=== PATIENT | female | born 1945 | race African-American/Black ===

== ENCOUNTER 2016-10-30 10:10 | Inpatient (IN) | payer OTHER ==
[2016-10-28 11:08] LABS: ADD UMIC YES; URINE BILIRUBIN (Dip) NEGATIVE (NEGATIVE); URINE BLOOD (Dip) 3+ (NEGATIVE); URINE COLOR LT. YELLOW (YELLOW); URINE GLUCOSE (Dip) NEGATIVE (NEGATIVE); URINE KETONES (Dip) NEGATIVE (NEGATIVE); URINE LEUKOCYTE ESTERASE (Dip) 2+ (NEGATIVE); URINE NITRITE (Dip) NEGATIVE (NEGATIVE); URINE TOTAL PROTEIN (Dip) TRACE (NEGATIVE); URINE UROBILINOGEN (Dip) 1.0 E.U./dL (0.1-1.0)
[2016-10-28 11:12] LABS: BASOPHILS % 0.5 % (0.0-2.0); EOSINOPHILS # 0.1 10^3/ul (0.0-0.5); EOSINOPHILS % 1.9 % (0.0-7.0); HEMATOCRIT 40.8 % (37.0-47.0); HEMOGLOBIN 13.7 g/dl (12.0-16.0); LYMPHOCYTES # 2.6 10^3/ul (0.8-2.9); LYMPHOCYTES % 34.5 % (15.0-51.0); MEAN CORPUSCULAR HGB CONC 33.6 g/dl (32.0-37.0); MEAN CORPUSCULAR VOLUME 83.4 fl (82.0-101.0); MEAN PLATELET VOLUME 8.8 fl (7.4-10.4); MONOCYTE # 0.5 10^3/ul (0.3-0.9); NEUTROPHIL # 4.3 10^3/ul (1.6-7.5); NEUTROPHILS % 56.1 % (39.0-77.0); PLATELET COUNT 272 10^3/UL (140-440); RED BLOOD COUNT 4.89 10^6/ul (4.20-5.40); RED CELL DISTRIBUTION WIDTH 13.4 % (11.5-14.5); UNCORRECTED WBC 7.6 10^3/ul (4.8-10.8); WHITE BLOOD COUNT 7.6 10^3/ul (4.8-10.8)
[2016-10-28 11:14] LABS: CONDITION 1
[2016-10-28 11:20] LABS: ALBUMIN 4.2 g/dl (3.3-4.9)
[2016-10-28 11:21] LABS: POTASSIUM 3.6 mmol/L (3.5-5.1)
[2016-10-28 11:23] LABS: BILIRUBIN,INDIRECT 0.5 mg/dl (0-1.1); BILIRUBIN,TOTAL 0.5 mg/dl (0.2-1.3); CREATININE 0.95 mg/dl (0.44-1.00)
[2016-10-28 11:24] LABS: ALBUMIN/GLOBULIN RATIO 1.1; CALCIUM 9.4 mg/dl (8.4-10.2)
[2016-10-28 11:26] LABS: INR 1.03; PROTIME 13.5 Sec (12.2-14.2); PT RATIO 1.1
[2016-10-28 11:49] LABS: BACTERIA,URINE FEW
[2016-10-28 13:08] LABS: CANCER ANTIGEN 125 36.2 U/ml (0.0-35.0)
[~2016-10-30] VITALS: Ht 160 cm; Wt 100.9 kg
[2016-10-30] VITALS (26 sets, daily range): BP systolic 130–195; BP diastolic 70–104; PULSE 69–95; RESP 10–23; Ht 160 cm; Wt 100.9 kg
[~2016-10-30 10:10] MED LIST: ROCURONIUM 50 MG INJ ONE
[2016-10-30] MEDS ORDERED: VALS1TAB76 PO (11:43)
[2016-10-30] MEDS ORDERED: SMV40T PO (11:43)
[2016-10-30] MEDS ORDERED: THROMBIN 5000 UNIT VIAL ONE (12:04)
[2016-10-30] MEDS ORDERED: METHYLENE BLUE 10 MG/ML VIAL ONE (12:04)
[2016-10-30] MEDS: Metronidazole 500 MG in NS 100 ML IVPB SCH ×2 (12:15→14:45)
[2016-10-30] MEDS: CEFAZOLIN 2 GM/50 ML (PMX) 50 ML IVPB SCH ×2 (12:16→14:30)
[2016-10-30] MEDS ORDERED: D5-NS + KCL 20 MEQ 1,000 ML IV SCH (12:30)
--- NOTE | 2016-10-30 13:16 | HPN ---
Date/Time of Note Date/Time of Note DATE: 10/30/16 TIME: 13:15 Interval H&P Admission Note Pt. seen H&P reviewed: No system changes ZOË VENEGAS MD Oct 30, 2016 13:16
[2016-10-30] MEDS ORDERED: PROPOFOL 20 ML ONE (13:22)
[2016-10-30] MEDS ORDERED: LIDOCAINE 2% (SDV) 5 ML INJ ONE (13:22)
[2016-10-30] MEDS ORDERED: SUCCINYLCHOLINE CHLORIDE 100 MG/5 ML SYG IV ONE (13:22)
[2016-10-30] MEDS ORDERED: MIDAZOLAM 1 MG/ML 2 ML INJ ONE (13:22)
[2016-10-30] MEDS ORDERED: ROCURONIUM 50 MG INJ ONE (13:22)
[2016-10-30] MEDS ORDERED: FENTAnyl 50 MCG/ML VIAL ONE (13:52)
[2016-10-30] MEDS ORDERED: DEXAMETHASONE 4 MG/ML 1 ML INJ ONE (16:03)
[2016-10-30] MEDS ORDERED: ONDANSETRON 4 MG INJ ONE (16:03)
[2016-10-30] MEDS ORDERED: FAMOTIDINE 20 MG INJ ONE (16:03)
[2016-10-30] MEDS ORDERED: ROPIVACAINE 0.2% 20 ML VIAL ONE (16:09)
[2016-10-30] MEDS ORDERED: GLYCOPYRROLATE 1 MG INJ ONE (17:47)
[2016-10-30] MEDS ORDERED: NEOSTIGMINE 3 MG/3 ML SYRINGE ONE ×2 (17:47→17:52)
[2016-10-30] MEDS ORDERED: morphine SULFATE/PF (10 MG/10 ML) INJ ONE (17:49)
[2016-10-30] MEDS ORDERED: HYDROmorphONE (0.2 MG/ML) 10ML SYG IV PRN ×2 (18:00)
[2016-10-30] MEDS ORDERED: LABETALOL HCL 20MG INJ IV PRN (18:00)
[2016-10-30] MEDS ORDERED: MEPERIDINE 25 MG INJ IV PRN (18:00)
[2016-10-30] MEDS ORDERED: hydrALAzine 20 MG INJ IV PRN ×2 (18:00→22:10)
[2016-10-30] MEDS ORDERED: NALBUPHINE HCL (10 MG/1 ML) INJ IV PRN (18:00)
[2016-10-30] MEDS ORDERED: NALOXONE (0.4 MG/ML) INJ IV PRN (18:00)
[2016-10-30] MEDS ORDERED: PROCHLORPERAZINE 10 MG INJ IV PRN (18:00)
[2016-10-30] MEDS ORDERED: EPHEDrine SULFATE 50 MG/5 ML SYG IV PRN (18:00)
[2016-10-30] MEDS ORDERED: HYDROmorphONE 1 MG/ML SYG IV PRN ×2 (18:00)
[2016-10-30] MEDS ORDERED: DIPHENHYDRAMINE 50 MG INJ IV PRN (18:00)
[2016-10-30] MEDS ORDERED: FENTAnyl 50 MCG/ML VIAL IV PRN (18:00)
[2016-10-30] MEDS ORDERED: ONDANSETRON 4 MG INJ IV PRN ×3 (18:00→20:00)
[2016-10-30] MEDS: HYDROmorphONE (0.2 MG/ML) 10ML SYG IV PRN ×5 (18:34→19:26)
--- NOTE | 2016-10-30 19:15 | CONS ---
Date/Time of Note Date/Time of Note DATE: 10/30/16 TIME: 19:08 Assessment/Plan Assessment/Plan Chief Complaint/Hosp Course Assessment and plan 1. Endometrial cancer Status post total laparoscopic hysterectomy, BSO, lymph node dissection Continue postsurgical care, n.p.o., pain medication, antiemetic medication Diet as per surgery recommendations 2. Essential hypertension Continue Diovan and hydrochlorothiazide, continue monitor 3. Dyslipidemia Continue statin -DVT prophylaxis: On SCD -GI prophylaxis: On Protonix We will continue monitor patient closely for recommendation management treatment as clinical course Problems: Consultation Date/Type/Reason Admit Date/Time Oct 30, 2016 at 10:20 Date of Consultation: Oct 30, 2016 Reason for Consultation Medical management postoperatively Referring Provider: MORGAN VENEGAS MD Hx of Present Illness This is a pleasant 71-year-old female with past medical history hypertension and dyslipidemia home was diagnosed with grade 1 endometrial cancer recently status post endometrial biopsy as outpatient. Patient was seen and evaluated by Dr. Morgan Venegas [employer] oncologist and after discussing the mode of the treatment and risk of the benefit of the surgery patient has decided to proceed with surgical intervention. Today on 10/30/2016 after signed consent patient was taken to the OR for total laparoscopic hysterectomy, BSO and lymph node removal. Medical team has been consulted postoperatively for medical management Constitutional: no complaints Eyes: no complaints ENT: no complaints Respiratory: no complaints Cardiovascular: no complaints Gastrointestinal: pain Musculoskeletal: no complaints Skin: no complaints Past Medical History Hypertension Dyslipidemia Morbid obesity Medical History: hypertension Past Surgical History Past Surgical Hx: no surgical history Family History Significant Family History: no pertinent family hx Social History Alcohol Use: none Smoking Status: Former smoker Drug Use: none Exam/Review of Systems Vital Signs Vitals Vital Signs Date Time Temp Pulse Resp B/P Pulse Ox O2 Delivery O2 Flow Rate FiO2 10/30/16 18:44 69 164/82 95 Nasal Cannula 2.0 10/30/16 18:39 97.8 16 Exam General: The patient is moderately overweight, Not in acute distress. HEENT: Atraumatic, normocephalic. The pupils are equal and round . Neck: Supple Chest: Normal expansion of the thorax during inspiration Lungs: Clear to auscultation bilaterally Heart: Normal S1-S2, Regular rhythm and rate. Abdomen: Soft , nontender, nondistended , bowel sounds hypoactive although are present. Surgical site is dry and clean with no evidence of hematoma Extremities: Normal to inspection, no edema no cyanosis Neurologic: Under the effect of anesthesia although , the patient is arousable and able to follow commands Results Result Diagram: 10/28/16 1045 10/28/16 1045 Medications Medications Current Medications Potassium Chloride/Dextrose/ Sod Cl (D5-NS + KCl 20 Meq) 1,000 ml @ 100 mls/hr Q10H IV ; Start 10/30/16 at 12:30 Hydromorphone HCl (Dilaudid) 0.4 mg Q2H PRN IV PAIN LEVEL 1-5; Start 10/30/16 at 18:00; Stop 10/31/16 at 18:00 Hydromorphone HCl (Dilaudid) 0.6 mg Q2H PRN IV PAIN LEVEL 6-10; Start 10/30/16 at 18:00; Stop 10/31/16 at 18:00 Nalbuphine HCl (Nubain) 2.5 mg Q4H PRN IV PRURITUS; Start 10/30/16 at 18:00; Stop 10/31/16 at 18:00 Ondansetron HCl (Zofran Inj) 4 mg Q6H PRN IV NAUSEA AND/OR VOMITING; Start 10/04 at 18:00; Stop 10/31/16 at 18:00 Naloxone HCl (Narcan) 0.2 mg Q2M PRN IV FOR RESP RATE 8 OR LESS; Start at 18:00; Stop 10/31/16 at 18:00 RENETTA REYNA MD Oct 30, 2016 19:14
[2016-10-30] MEDS: KETOROLAC 15 MG INJ IV SCH (19:44)
[2016-10-30] MEDS: ATORVASTATIN 20 MG TAB PO SCH (20:29)
[2016-10-30] MEDS: DEXTROSE 5% IV SCH (21:53)
[2016-10-30] MEDS: POTASSIUM CHLORIDE IV SCH (21:53)
[2016-10-30] MEDS: [UNRECOGNIZED DRUG - OTHER] IV SCH (21:53)
[2016-10-30] MEDS: CEFAZOLIN 1 GM/50 ML (PMX) 50 ML IVPB SCH (23:46)
[2016-10-31] MEDS: KETOROLAC 15 MG INJ IV SCH ×4 (01:45→19:46)
[2016-10-31] MEDS: PANTOPRAZOLE (EC) 40 MG TAB PO SCH (05:25)
[2016-10-31] MEDS: POTASSIUM CHLORIDE IV SCH ×2 (05:25→12:42)
[2016-10-31] MEDS: [UNRECOGNIZED DRUG - OTHER] IV SCH ×2 (05:25→12:42)
[2016-10-31] MEDS: CEFAZOLIN 1 GM/50 ML (PMX) 50 ML IVPB SCH ×3 (05:25→17:58)
[2016-10-31] MEDS: DEXTROSE 5% IV SCH ×2 (05:25→12:42)
[2016-10-31 05:55] LABS: HEMATOCRIT 35.7 % (37.0-47.0); HEMOGLOBIN 11.9 g/dl (12.0-16.0); LYMPHOCYTES % 9.8 % (15.0-51.0); MEAN CORPUSCULAR HEMOGLOBIN 28.4 pg (29.0-33.0); MEAN CORPUSCULAR HGB CONC 33.4 g/dl (32.0-37.0); MONOCYTE # 0.9 10^3/ul (0.3-0.9); MONOCYTES % 8.2 % (0.0-11.0); NEUTROPHIL # 8.6 10^3/ul (1.6-7.5); PLATELET COUNT 245 10^3/UL (140-440); RED CELL DISTRIBUTION WIDTH 13.7 % (11.5-14.5); UNCORRECTED WBC 10.5 10^3/ul (4.8-10.8); WHITE BLOOD COUNT 10.5 10^3/ul (4.8-10.8)
[2016-10-31 06:18] LABS: CONDITION 1
[2016-10-31 06:28] LABS: CREATININE 1.09 mg/dl (0.44-1.00)
[2016-10-31 07:52] VITALS: BP 101/51; RESP 18
[2016-10-31] MEDS: VALSARTAN 160 MG TAB PO SCH (08:08)
[2016-10-31] MEDS: HYDROCHLOROTHIAZIDE 12.5 MG CAP PO SCH (08:08)
--- NOTE | 2016-10-31 10:40 | CONS ---
Date/Time of Note Date/Time of Note DATE: 10/31/16 TIME: 10:38 Assessment/Plan Assessment/Plan Chief Complaint/Hosp Course Assessment and plan 1. Endometrial cancer Status post total laparoscopic hysterectomy, BSO, lymph node dissection Postop day #1 Continue postsurgical care, n.p.o., pain medication, antiemetic medication Diet as per surgery recommendations 2. Essential hypertension Continue Diovan and hydrochlorothiazide, continue monitor 3. Dyslipidemia Continue statin -DVT prophylaxis: On SCD -GI prophylaxis: On Protonix We will continue monitor patient closely for recommendation management treatment as clinical course Problems: Consultation Date/Type/Reason Admit Date/Time Oct 30, 2016 at 10:20 Initial Consult Date 10/30/16 Referring Provider: ZOË VENEGAS MD 24 HR Interval Summary Free Text/Dictation Patient denies of any chest pain or shortness of breath Patient denies of any abdominal discomfort Patient has been able to tolerate oral intake Constitutional: no complaints Exam/Review of Systems Vital Signs Vitals Vital Signs Date Time Temp Pulse Resp B/P Pulse Ox O2 Delivery O2 Flow Rate FiO2 10/31/16 07:52 99.0 78 18 101/51 99 10/30/16 23:48 Nasal Cannula 2.0 Intake and Output 10/30/16 10/30/16 10/31/16 15:00 23:00 07:00 Intake Total 150 ml 2600 ml 1300 ml Output Total 1100 ml 800 ml Balance 150 ml 1500 ml 500 ml Exam General: The patient is well-developed, Not in acute distress. HEENT: Atraumatic, normocephalic. The pupils are equal and round . Neck: Supple with full range of motion. Chest: Normal expansion of the thorax during inspiration Lungs: Clear to auscultation bilaterally Heart: Normal S1-S2, Regular rhythm and rate. Abdomen: Soft , nontender, nondistended , bowel sounds are present. Surgical site is dry and clean Extremities: Normal to inspection, no edema no cyanosis Neurologic: Normal mental status,The patient is awake, alert and oriented . Results Result Diagram: 10/31/16 0429 10/31/16 0429 Results 24 hrs Laboratory Tests Test 10/31/16 04:29 Anion Gap 15 Basophils # 0.0 Basophils % 0.0 Blood Morphology Comment Blood Urea Nitrogen 12 Calcium Level 8.0 L Carbon Dioxide Level 28 Chloride Level 104 Creatinine 1.09 H Eosinophils # 0.0 Eosinophils % 0.0 Glucose Level 157 Hematocrit 35.7 L Hemoglobin 11.9 L Lymphocytes # 1.0 Lymphocytes % 9.8 L Mean Corpuscular Hemoglobin 28.4 L Mean Corpuscular Hemoglobin Concent 33.4 Mean Corpuscular Volume 85.0 Mean Platelet Volume 9.0 Monocytes # 0.9 Monocytes % 8.2 Neutrophils # 8.6 H Neutrophils % 82.0 H Nucleated Red Blood Cells # 0.0 Nucleated Red Blood Cells % 0.0 Platelet Count 245 Potassium Level 4.0 Red Blood Count 4.20 Red Cell Distribution Width 13.7 Sodium Level 143 White Blood Count 10.5 # Medications Medications Current Medications Hydromorphone HCl (Dilaudid) 0.4 mg Q2H PRN IV PAIN LEVEL 1-5; Start 10/30/16 at 18:00; Stop 10/31/16 at 18:00 Hydromorphone HCl (Dilaudid) 0.6 mg Q2H PRN IV PAIN LEVEL 6-10; Start 10/30/16 at 18:00; Stop 10/31/16 at 18:00 Nalbuphine HCl (Nubain) 2.5 mg Q4H PRN IV PRURITUS; Start 10/30/16 at 18:00; Stop 10/31/16 at 18:00 Naloxone HCl (Narcan) 0.2 mg Q2M PRN IV FOR RESP RATE 8 OR LESS; Start at 18:00; Stop 10/31/16 at 18:00 Atorvastatin Calcium (Lipitor) 20 mg DAILY@21 PO ; Start 10/30/16 at 21:00 Valsartan (Diovan) 160 mg DAILY PO ; Start 10/31/16 at 09:00 Hydrochlorothiazide (Hydrochlorothiazide) 12.5 mg DAILY PO ; Start 10/31/16 at 09:00 Pantoprazole (Protonix Tab) 40 mg DAILY@06 PO Last administered on 10/31/16 05 :25; Admin Dose 40 MG; Start 10/31/16 at 06:00 Ketorolac Tromethamine 15 mg 15 mg Q6H IV Last administered on 10/31/16 08:52 ; Admin Dose 15 MG; Start 10/30/16 at 19:30; Stop 11/01/16 at 13:31 Potassium Chloride/Dextrose/ Lactated Ringer's (KCl/D5-Lr) 1,000 ml @ 100 mls/ hr Q10H IV Last administered on 10/31/16 05:25; Admin Dose 100 MLS/HR; Start 10/30/16 at 20:00 Ondansetron HCl 4 mg 4 mg Q6H PRN IV NAUSEA AND/OR VOMITING; Start 10/30/16 at 20:00 Cefazolin Sodium (Ancef 1 Gm/50 ml (Pmx)) 50 ml @ 100 mls/hr Q6 IVPB Last administered on 10/31/16 05:25; Admin Dose 100 MLS/HR; Start 10/31/16 at 00:00 ; Stop 10/31/16 at 18:29 Acetaminophen/ Hydrocodone Bitart ([place] (5/325)) 1 tab Q6H PRN PO PAIN; Start 10/30/16 at 20:00 Hydralazine HCl (Apresoline) 10 mg Q6H PRN IV ELEVATED BLOOD PRESSURE Last administered on 10/30/16 22:16; Admin Dose 10 MG; Start 10/30/16 at 22:10 RENETTA REYNA MD Oct 31, 2016 10:39
[2016-10-31] MEDS: ATORVASTATIN 20 MG TAB PO SCH (19:46)
[2016-10-31 20:48] VITALS: BP 111/62; PULSE 84; RESP 18
[2016-10-31] MEDS: HYDROCODONE/APAP (5/325) TAB PO PRN (20:59)
--- NOTE | 2016-10-31 21:20 | OPR ---
Date/Time of Note Date/Time of Note DATE: 10/31/16 TIME: 21:19 Operative Report Free Text/Dictation 1 OPERATIVE REPORT [facility] Name: Ria Garcia Medical Date: 10/1216 Preoperative Diagnosis: 1-Endometrial cancer grade 1 Postoperative Diagnosis: Endometrial cancer with final pathology pending Procedures: 1- Total laparoscopic hysterectomy with bilateral salpingoophorectomy 2- Bilateral ureteral dissection with repositioning 3- Laparoscopic pelvic and aortic lymph node dissection 4- Retroperitoneal uterine artery ligation adjacent to hypogastric artery 5-Minilaparotomy Surgeon: Dr. Moulton Sumo Wrestler: Dr. Sanders Anaesthesia: General with regional Indications for Procedure: This 71- year old patient had a grade 1 endometrial cancer without evidence of metastatic disease preoperatively and after discussions of options with risks and benefits it was determined that a laparoscopic hysterectomy with bilateral salpingoophorectomy and pelvic/aortic lymph node dissection would be completed for the purposes of treatment and possibly planning additional adjuvant therapy. The pelvic and LND was performed in lieu of final grading not being equivalent to preoperative D&C grade 18-25% of the time and frozen section not being more that 80% reliable in determining grade and depth of invasion; therefore complete staging is performed to determine postoperative management unless there is a significant contraindication. Name: Ria Duke Intraoperative Findings and Summary of Procedure: After placing the Trocars and exploration we noted significant pelvic adhesions and fibroids with significant adhesions of the adnexia to the sidewalls. The TLH/BSO was then performed without incident but required a ureteral dissection due to anatomic issues of the adnexia adherent to the sidewalls and uterine enlargement due to fibroids with a left broad ligament myoma especially distorting the anatomy, with retroperitoneal uterine artery ligation adjacent to hypogastric artery for required hemostasis, with the laparoscopic LND being subsequently performed with a finding of grossly negative nodes pathology pending. The patient will stay a minimum of one night to observe for recovery of from anesthesia and confirm stable hemoglobin and hematocrit with the necessity of confirmation of some GI recovery and probably need an addition night as well. Findings and Procedure: After being prepped and draped in the usual manner an EEA sizer and pneumo- occluder was inserted vaginally. A 5-millimeter trocar was then placed periumbilically without incident. Subsequently, we insufflated and placed two 12- millimeter trocars laterally and a 12 millimeter trocar suprapubically, as well as an additional 12-mm trocar cephlad to the umbilicus. At this time multiple pelvic adhesions were lysed with sharp dissection and the Omni if not adjacent to serosa. Subsequently we explored and noted an enlarged uterus with fibroids 14-16 week size and notably a left broad ligament myoma with adnexia adherent to the sidewalls due to apparent inflammation and old scar tissue, all distorting the retroperitoneal anatomy and obscuring the ureteral location. Initially the right round ligament was cauterized and transected with the Thunderbeat and the retroperitoneal space further opened parallel to the IP ligament an laterally with the same devise. The right ureter was identified and due to the aforementioned distortion from adherent adnexia was dissected laterally with the Omni Name: [facility] and the endo-dissector. After lateralizing the ureter the uterine artery was identified and clipped adjacent to the hypogastric artery due to the uterine enlargement and hypervascularity lateral to the ureter due to the anatomic distortion. Hence, a space was developed the broad ligament and the right IP ligament was cauterized and transected with a Thunderbeat after which the uterus was retracted medially and the bladder flap was partly developed with the Gyrus bipolar cutting forceps and the Omni. We then used a 10-mm tenaculum placed through the 12-mm suprapubic trocar to manipulate the uterus and with the EEA sizer uterus was retracted and left round ligament was cauterized and transected with the Thunderbeat and the retroperitoneal space further opened parallel to the IP ligament an laterally with the same devise. The left ureter was identified and due to the aforementioned distortion was dissected laterally with the Omni and the endo-dissector as done contralaterally but more extensively due to an adjacent broad ligament myoma distorting the retroperitoneal anatomy and obscuring the ureteral anatomy. After lateralizing the ureter the uterine artery was identified and clipped adjacent to the hypogastric artery due to the uterine enlargement and the aforementioned broad ligament myoma precluding controlling the uterine artery in the conventional manner in the lower uterine segment. Subsequently, a space was developed in the broad ligament and the left IP ligament was cauterized and transected with a Thunderbeat after which the uterus was retracted medially, allowing development or the bladder flap uneventfully with a Thunderbeat and blunt dissection. Subsequently, the right uterine artery was transected with a Thunderbeat perpendicular to the distal lower uterine segment and the Cardinal ligament and utero-sacral ligament were both transected with an Omni and Thunderbeat parallel to the lower uterine segment and cervix. An identical series of steps were taken on the left side. The anterior and posterior colpotomies were accomplished with a Thunderbeat anteriorly and posteriorly, and continued around the sides as the specimen was from the vagina uneventfully. Subsequently the 12-millimeter trocar site was converted into a minilaparotomy with a scalpel and electrocautery and digitally and the Name: [facility] specimen was removed en-bloc. The minilaparotomy was then partly closed with digital compression and multiple purchases of the endo-close using 0- Vicryl suture, allowing the 12-millimeter trocar to be reinserted. The vagina was closed with interrupted 0 Vicryl suture and continuous 2-0 v-lock suture. At this time the pelvic and aortic LND were completed after confirming hemostasis. Initially a fan retractor was used for exposure and secured to the Norberto arm and all lymph node tissue adjacent to the right external iliac artery and vein, hypogastric artery and vein, as well as obturator fossa were removed with sharp and blunt dissection, using the Thunderbeat or Gyrus bipolar Omni for hemostasis and lymphostasis. The aleah tissue was grasped and subsequently placed under tractions with the Omni and the Thunderbeat then being used for the hemostasis and lymphostasis in the process of removal. The dissection was continued to include aleah tissue adjacent to the common iliac vessels. The obturator nerve was identified and all adjacent aleah tissue removed with blunt dissection, with the Thunderbeat or Gyrus bipolar Omni used for lymphostasis and hemostasis as needed. The fan retractors were adjusted in that a suprapubically placed fan retracted the broad ligament and ureter with ileum while the right lateral trocar was used for a fan to retract the cecum and ascending colon allowing any aleah tissue adjacent to the vena cava, as well as aorto-caval nodes to be removed using identical technique. Division Sales Manager vessels were addressed with the Thunderbeat or Gyrus bipolar Omni. At this time we placed the fan retractors for contralateral exposure. Subsequently, all lymph node tissue adjacent to the left external iliac artery and vein, hypogastric artery and vein, as well as obturator fossa were removed with sharp and blunt dissection, the Thunderbeat or Gyrus bipolar Omni for hemostasis and lymphostasis, with a technique identical to the right side. The dissection was continued to include aleah tissue adjacent to the common iliac vessels. Subsequently, the fan retractors were adjusted and any aleah tissue adjacent to the aorta were dissected using similar technique. After irrigating and assuring hemostasis the 12 millimeter trocars were removed and the fascia was closed with 0-vicryl using an endo-close Name: Comuto devise. The gas was removed and the skin of all sites then closed with subcutaneous interrupted 5-0 Plain Gut. The EBL was 150cc and the patient tolerated the procedure well and left the OR in good condition. Zoë Moulton M.D. ZOË MOULTON MD Oct 31, 2016 21:20
--- NOTE | 2016-10-31 21:23 | PN ---
Date/Time of Note Date/Time of Note DATE: 10/31/16 TIME: 21:20 Assessment/Plan VTE Prophylaxis VTE Prophylaxis Intervention: SCD's Lines/Catheters IV [facility] Type [facility] Peripheral IV Urinary Cath still in place: Yes Assessment/Plan Chief Complaint/Hosp Course endometrial cancer Problems: Assessment/Plan see below Subjective 24 Hr Interval Summary Free Text/Dictation S- + flatus and was OOB . voided well O- Resp clear CVS- NSR Abd- soft Nt EXT- NT no edema A- doing well P- advance diet and mobilize more. Possibl discharge tomorrow Exam/Review of Systems Vital Signs Vitals Vital Signs Date Time Temp Pulse Resp B/P Pulse Ox O2 Delivery O2 Flow Rate FiO2 10/31/16 20:48 98.3 84 18 111/62 99 Room Air 10/30/16 23:48 2.0 Intake and Output 10/30/16 10/30/16 10/31/16 15:00 23:00 07:00 Intake Total 150 ml 2600 ml 1300 ml Output Total 1100 ml 800 ml Balance 150 ml 1500 ml 500 ml Results Result Diagram: 10/31/16 0429 10/31/16 0429 Results 24 hrs Laboratory Tests Test 10/31/16 04:29 Anion Gap 15 Basophils # 0.0 Basophils % 0.0 Blood Morphology Comment Blood Urea Nitrogen 12 Calcium Level 8.0 L Carbon Dioxide Level 28 Chloride Level 104 Creatinine 1.09 H Eosinophils # 0.0 Eosinophils % 0.0 Glucose Level 157 Hematocrit 35.7 L Hemoglobin 11.9 L Lymphocytes # 1.0 Lymphocytes % 9.8 L Mean Corpuscular Hemoglobin 28.4 L Mean Corpuscular Hemoglobin Concent 33.4 Mean Corpuscular Volume 85.0 Mean Platelet Volume 9.0 Monocytes # 0.9 Monocytes % 8.2 Neutrophils # 8.6 H Neutrophils % 82.0 H Nucleated Red Blood Cells # 0.0 Nucleated Red Blood Cells % 0.0 Platelet Count 245 Potassium Level 4.0 Red Blood Count 4.20 Red Cell Distribution Width 13.7 Sodium Level 143 White Blood Count 10.5 # Medications Medications Current Medications Atorvastatin Calcium (Lipitor) 20 mg DAILY@21 PO Last administered on t 19:46; Admin Dose 20 MG; Start 10/30/16 at 21:00 Valsartan (Diovan) 160 mg DAILY PO ; Start 10/31/16 at 09:00 Hydrochlorothiazide (Hydrochlorothiazide) 12.5 mg DAILY PO ; Start 10/31/16 at 09:00 Pantoprazole (Protonix Tab) 40 mg DAILY@06 PO Last administered on 10/31/16 05 :25; Admin Dose 40 MG; Start 10/31/16 at 06:00 Ketorolac Tromethamine 15 mg 15 mg Q6H IV Last administered on 10/31/16 19:46 ; Admin Dose 15 MG; Start 10/30/16 at 19:30; Stop 11/01/16 at 13:31 Potassium Chloride/Dextrose/ Lactated Ringer's (KCl/D5-Lr) 1,000 ml @ 100 mls/ hr Q10H IV Last administered on 10/31/16 12:42; Admin Dose 100 MLS/HR; Start 10/30/16 at 20:00 Ondansetron HCl (Zofran Inj) 4 mg Q6H PRN IV NAUSEA AND/OR VOMITING; Start 10/04 at 20:00 Acetaminophen/ Hydrocodone Bitart ([place] (5/325)) 1 tab Q6H PRN PO PAIN Last administered on 10/31/16 20:59; Admin Dose 1 TAB; Start 10/30/16 at 20:00 Hydralazine HCl (Apresoline) 10 mg Q6H PRN IV ELEVATED BLOOD PRESSURE Last administered on 10/30/16 22:16; Admin Dose 10 MG; Start 10/30/16 at 22:10 ZOË VENEGAS MD Oct 31, 2016 21:22
[2016-11-01] MEDS: KETOROLAC 15 MG INJ IV SCH ×3 (01:24→13:30)
[2016-11-01 05:21] LABS: BASOPHILS % 0.5 % (0.0-2.0); EOSINOPHILS # 0.1 10^3/ul (0.0-0.5); EOSINOPHILS % 1.5 % (0.0-7.0); HEMATOCRIT 32.3 % (37.0-47.0); HEMOGLOBIN 10.7 g/dl (12.0-16.0); LYMPHOCYTES # 3.1 10^3/ul (0.8-2.9); LYMPHOCYTES % 37.4 % (15.0-51.0); MEAN CORPUSCULAR HEMOGLOBIN 28.1 pg (29.0-33.0); MEAN CORPUSCULAR HGB CONC 33.2 g/dl (32.0-37.0); MEAN CORPUSCULAR VOLUME 84.5 fl (82.0-101.0); MEAN PLATELET VOLUME 8.7 fl (7.4-10.4); MONOCYTE # 0.8 10^3/ul (0.3-0.9); MONOCYTES % 9.5 % (0.0-11.0); NEUTROPHIL # 4.3 10^3/ul (1.6-7.5); NEUTROPHILS % 51.1 % (39.0-77.0); PLATELET COUNT 196 10^3/UL (140-440); RED BLOOD COUNT 3.82 10^6/ul (4.20-5.40); RED CELL DISTRIBUTION WIDTH 13.4 % (11.5-14.5); UNCORRECTED WBC 8.3 10^3/ul (4.8-10.8); WHITE BLOOD COUNT 8.3 10^3/ul (4.8-10.8)
[2016-11-01] MEDS: PANTOPRAZOLE (EC) 40 MG TAB PO SCH (05:24)
[2016-11-01 05:32] LABS: POTASSIUM 3.2 mmol/L (3.5-5.1)
[2016-11-01 05:35] LABS: CREATININE 0.96 mg/dl (0.44-1.00)
[2016-11-01 05:36] LABS: CALCIUM 8.2 mg/dl (8.4-10.2)
[2016-11-01 05:55] LABS: CONDITION 1
[2016-11-01] MEDS: DEXTROSE 5% IV SCH (08:49)
[2016-11-01] MEDS: [UNRECOGNIZED DRUG - OTHER] IV SCH (08:49)
[2016-11-01] MEDS: POTASSIUM CHLORIDE IV SCH (08:49)
[2016-11-01] MEDS: HYDROCHLOROTHIAZIDE 12.5 MG CAP PO SCH (09:04)
[2016-11-01] MEDS: VALSARTAN 160 MG TAB PO SCH (09:04)
[2016-11-01 09:21] VITALS: BP 157/77; RESP 18
[2016-11-01] MEDS: HYDROCODONE/APAP (5/325) TAB PO PRN ×2 (09:44→15:16)
[2016-11-01] MEDS ORDERED: POTASSIUM CHLORIDE (SR) 20 MEQ TAB PO STA (13:52)
--- NOTE | 2016-11-01 14:00 | PDOCDIS ---
Discharge Instructions CONDITION Patient Condition: Good HOME CARE INSTRUCTIONS: Diet Instructions: Low Fat /Cholesterol ACTIVITY: Activity Restrictions: Avoid heavy lifting No Sexual Activity Do not Drive Avoid Heavy Housework FOLLOW UP/APPOINTMENTS Appointments Follow up with [facility] TECHNICIAN as his recommendation RENETTA REYNA MD Nov 01, 2016 14:00
--- NOTE | 2016-11-01 18:16 | DS ---
DATE OF ADMISSION: 10/30/2016 DATE OF DISCHARGE: 11/01/2016 ADMITTING PHYSICIAN: Morgan Moulton MD CONSULTS: Medical team. DISCHARGE DIAGNOSES: 1. Endometrial cancer, grade I, status post total laparoscopic hysterectomy, bilateral salpingo-oop horectomy and bilateral ureteral dissection with repositioning; laparoscopic pelvic and aortic lymph node dissection and retroperitoneal uterine artery ligation adjacent to the hypogastric artery and mini laparotomy. 2. Essential hypertension, well controlled on Diovan and hydrochlorothiazide. 3. Dyslipidemia, on statin. MEDICATIONS: 1. Valsartan, hydrochlorothiazide. 2. Simvastatin. 3. Odin. ALLERGIES: NO KNOWN DRUG ALLERGIES. LABORATORY: WBC 8.3, hemoglobin 10.7, hematocrit 32.3, platelets 196. Sodium 144, potassium 3.2, c hloride 107, bicarbonate 29, BUN 9, creatinine 0.96, glucose 125, calcium 8.2. NOTATION: Potassium was repleted. HOSPITAL COURSE: This is a pleasant 71-year-old female with past medical history of hypertension, d yslipidemia who was diagnosed with grade I endometrial cancer recently, status post endometrial biop sy as outpatient. The patient was seen and evaluated by Dr. Morgan Moulton, ORTHODONTIC TECHNICIAN oncologist, and af ter discussing the mode of treatment, risks and benefits of surgery, the patient decided to proceed with surgical intervention. On 10/30/2016, after signing consent, the patient was taken to OR for t otal laparoscopic hysterectomy with bilateral salpingo-oophorectomy, bilateral ureteral dissection a nd repositioning, laparoscopic pelvic and aortic lymph node dissection and retroperitoneal uterine a rtery ligation adjacent to the hypogastric artery. The patient tolerated the procedure well and was taken to recovery room from which she was admitted to medical/surgical. On the following day, the patient was started on a full liquid diet and has been advanced as tolerated. The patient has been seen and evaluated by physical therapy. The patient's vitals have been stable with a temperature 98 .3, pulse 84, respirations 18, blood pressure has been ranging from 111/62 and 157/77, oxygen satura tion 98%. PHYSICAL EXAMINATION: GENERAL: The patient is lying in bed, comfortable, without any distress. She is awake, alert, orie nted. Able to answer my questions properly. She is able to tolerate oral intake. NECK: Supple. Trachea is midline. CHEST: Normal expansion of thorax during inspiration. ABDOMEN: Soft, nontender, not distended. Surgical site is dry and clean. CARDIOVASCULAR: Normal S1, S2. Regular rhythm and rate. LUNGS: Clear to auscultation bilaterally. CARDIOVASCULAR: Upper and lower extremities within normal limits. Full range of motion. The patient today was seen and evaluated by the admitting doctor, Dr. Moulton, and has been cleared at this standpoint to be discharged home. The Pena will be discontinued and the patient needs to have urine output prior to discharge. Her labs are stable except the potassium, which the potassium has been repleted. At this time, the patient is medically stable to be discharged home with close followup with Dr. Moulton and her primary care physician as outpatient. Total amount of time spent for evaluation of the patient and discharge workup 40 minutes. Dictated By: RENETTA STOVER/NTS Conf#: [id number] DID#: [id number]
--- NOTE | 2016-11-01 19:13 | PN ---
Date/Time of Note Date/Time of Note DATE: 11/01/16 TIME: 19:11 Assessment/Plan VTE Prophylaxis VTE Prophylaxis Intervention: SCD's Lines/Catheters IV Catheter Type (from [facility]): Peripheral IV Urinary Cath still in place: No Assessment/Plan Chief Complaint/Hosp Course endometrial cancer Problems: Assessment/Plan A- doing well P- D/C Pena and then anticipate discharge Subjective 24 Hr Interval Summary Free Text/Dictation S- + flatus and was OOB . Pena in despite act I was told yesterday voided OK O- Resp clear CVS- NSR Abd- soft Nt EXT- NT no edema A- doing well P- D/C Pena and then anticipate discharge Exam/Review of Systems Vital Signs Vitals Vital Signs Date Time Temp Pulse Resp B/P Pulse Ox O2 Delivery O2 Flow Rate FiO2 11/01/16 09:21 98.2 84 18 157/77 98 10/31/16 20:48 Room Air 10/30/16 23:48 2.0 Intake and Output 10/31/16 10/31/16 11/01/16 15:00 23:00 07:00 Intake Total 20 ml 1200 ml 1280 ml Output Total 600 ml 1100 ml Balance 20 ml 600 ml 180 ml Results Result Diagram: 11/01/16 0423 11/01/16 0423 Results 24 hrs Laboratory Tests Test 11/01/16 04:23 Anion Gap 11 Basophils # 0.0 Basophils % 0.5 Blood Morphology Comment Blood Urea Nitrogen 9 Calcium Level 8.2 L Carbon Dioxide Level 29 Chloride Level 107 Creatinine 0.96 Eosinophils # 0.1 Eosinophils % 1.5 Glucose Level 125 Hematocrit 32.3 L Hemoglobin 10.7 L Lymphocytes # 3.1 H Lymphocytes % 37.4 Mean Corpuscular Hemoglobin 28.1 L Mean Corpuscular Hemoglobin Concent 33.2 Mean Corpuscular Volume 84.5 Mean Platelet Volume 8.7 Monocytes # 0.8 Monocytes % 9.5 Neutrophils # 4.3 Neutrophils % 51.1 Nucleated Red Blood Cells # 0.0 Nucleated Red Blood Cells % 0.0 Platelet Count 196 Potassium Level 3.2 L Red Blood Count 3.82 L Red Cell Distribution Width 13.4 Sodium Level 144 White Blood Count 8.3 # Medications Medications Current Medications Atorvastatin Calcium (Lipitor) 20 mg DAILY@21 PO Last administered on t 19:46; Admin Dose 20 MG; Start 1/12/17 at 21:00 Valsartan (Diovan) 160 mg DAILY PO Last administered on 11/01/16 09:04; Admin Dose 160 MG; Start 10/31/16 at 09:00 Hydrochlorothiazide (Hydrochlorothiazide) 12.5 mg DAILY PO Last administered on 11/01/16 09:04; Admin Dose 12.5 MG; Start 10/31/16 at 09:00 Pantoprazole 40 mg 40 mg DAILY@06 PO Last administered on 11/01/16 05:24; Admin Dose 40 MG; Start 10/31/16 at 06:00 Potassium Chloride/Dextrose/ Lactated Ringer's (KCl/D5-Lr) 1,000 ml @ 40 mls/ hr Q24H IV Last administered on 10/31/16 12:42; Admin Dose 100 MLS/HR; Start 10/30/16 at 20:00 Ondansetron HCl (Zofran Inj) 4 mg Q6H PRN IV NAUSEA AND/OR VOMITING; Start 10/04 at 20:00 Acetaminophen/ Hydrocodone Bitart (Commack (5/325)) 1 tab Q6H PRN PO PAIN Last administered on 11/01/16 15:16; Admin Dose 1 TAB; Start 10/30/16 at 20:00 Hydralazine HCl (Apresoline) 10 mg Q6H PRN IV ELEVATED BLOOD PRESSURE Last administered on 10/30/16 22:16; Admin Dose 10 MG; Start 10/30/16 at 22:10 ZOË VENEGAS MD Nov 01, 2016 19:13
[2016-11-01 20:30] VITALS: BP 115/80; PULSE 68; RESP 18
== END 2016-11-01 20:25 | disposition home or self-care (01) | DRG 741 ==
LOC: REC 10:20 → EDSTATUS 12:30 → MS1 20:20
PROC: 0UTC4ZZ Resection of Cervix, Percutaneous Endoscopic Approach (ICD-10-PCS; 2016-10-30)
PROC: 0UT24ZZ Resection of Bilateral Ovaries, Percutaneous Endoscopic Approach (ICD-10-PCS; 2016-10-30)
PROC: 0UT74ZZ Resection of Bilateral Fallopian Tubes, Percutaneous Endoscopic Approach (ICD-10-PCS; 2016-10-30)
PROC: 07BC4ZX Excision of Pelvis Lymphatic, Percutaneous Endoscopic Approach, Diagnostic (ICD-10-PCS; 2016-10-30)
PROC: 0TS84ZZ Reposition Bilateral Ureters, Percutaneous Endoscopic Approach (ICD-10-PCS; 2016-10-30)
PROC: 07BD4ZX Excision of Aortic Lymphatic, Percutaneous Endoscopic Approach, Diagnostic (ICD-10-PCS; 2016-10-30)
PROC: 0UT94ZZ Resection of Uterus, Percutaneous Endoscopic Approach (ICD-10-PCS; principal; 2016-10-30 12:30)
DX: C54.1 Malignant neoplasm of endometrium (principal); N13.5 Crossing vessel and stricture of ureter without hydronephrosis; I10 Essential (primary) hypertension; E78.5 Hyperlipidemia, unspecified; Z87.891 Personal history of nicotine dependence; D25.9 Leiomyoma of uterus, unspecified
CPT/HCPCS: 80048; 80053; 81001; 81003; 85025; 85610; 85730; 86304; 86850; 86900; 86901; 86920; 87086; 88104; 88305; 88307; 97162; J0330; J0360; J0690; J1100; J1170; J1644; J1885; J2175; J2250; J2274; J2405; J2710; J2795; J3010; J3480; J7121